=== PATIENT | male | born 1970 | race Caucasian/White ===

== ENCOUNTER 2021-05-01 15:59 | Emergency (ER) | payer OTHER, SELFPAY ==
[2021-05-01 16:26] VITALS: BP 112/84; PULSE 70; RESP 18; TEMP 36.7; O2SAT 97
[2021-05-01 17:46] VITALS: BP 120/87; PULSE 59; RESP 16; O2SAT 99
--- NOTE | 2021-05-01 18:06 | ED.GENADULT ---
HPI - General Adult General Chief complaint: Skin/Abscess/Foreign Body Stated complaint: Insect bite to abd Time Seen by Provider: 05/01/21 17:51 History of Present Illness HPI narrative: Pain presents with concern for abscess. Patient reports he was bit by something last night baker his symptoms and then the swelling became worse and he was having more pain so he wanted to come in for evaluation. Pain is located on his right lower quadrant achy, constant, worse when he touches his swelling. Denies any fevers, cough, congestion, nausea, vomiting Related Data Allergies Allergy/AdvReac Type Severity Reaction Status Date / Time No Known Allergies Allergy Verified 05/01/21 16:28 Review of Systems Review of Systems: CONSTITUTIONAL: Denies fever, chills, or sweats. EYES: Denies visual changes, redness, or discharge. ENT: Denies rhinorrhea, congestion, sore throat, or otalgia. CARDIOVASCULAR: Denies chest pain, palpitations, or edema. RESPIRATORY: Denies cough or dyspnea. GASTROINTESTINAL: Denies abdominal pain, nausea, vomiting, or diarrhea. GENITOURINARY: Denies dysuria or hematuria. SKIN: Denies rash or itching. MUSCULOSKELETAL: Denies back pain, joint pain, or myalgia. NEUROLOGIC: Denies headache, numbness, dizziness, or weakness. PSYCHIATRIC: Denies anxiety or depression. All systems reviewed & are unremarkable except as noted in HPI and below Exam Narrative: GENERAL: Well-appearing, well-nourished, and in no acute distress. HEAD: Normocephalic, atraumatic. EYES: PERRLA and EOMI. ENT: Nares clear, no rhinorrhea or epistaxis. Mucous membranes moist. NECK: Supple. No JVD ABDOMEN: Soft, nontender, nondistended, normal active bowel sounds. 1 x 3 cm area of erythema with central area of superficial swelling. EXTREMITIES: Normal range of motion. No edema. SKIN: Warm, dry, no rash. NEURO: No focal deficits. Alert and oriented x3. PSYCH: Normal mood and affect. Course Vital Signs Vital signs: Vital Signs Temperature 36.7 C 05/01/21 16:26 Pulse Rate 70 05/01/21 16:26 Respiratory Rate 18 05/01/21 16:26 Blood Pressure 112/84 05/01/21 16:26 Pulse Oximetry 97 05/01/21 16:26 Temperature 36.7 C 05/01/21 16:26 Pulse Rate 59 L 05/01/21 17:46 Respiratory Rate 16 05/01/21 17:46 Blood Pressure 120/87 05/01/21 17:46 Pulse Oximetry 99 05/01/21 17:46 Procedures Abscess I/D abdomen: Date of Incision: 05/01/21 Time of Incision: 18:08 Side (if applicable): right Sedation/analgesia: none Local Anesthetic: none Technique: needle aspiration Amount of fluid expressed (mL): 1.0 Irrigation: No Packing used?: none I&D Results: Pus Medical Decision Making MDM Narrative Medical decision making narrative: H&P as above, vss, pt looks clinically well, exam small area of erythema, l labs/img considered, symptomatic relief available as needed, on reevaluation pt continues to looks clinically well. Suspect superficial abscess needle aspiration was performed with purulent material there continue to be some erythema concerning for cellulitis, dns sepsis, NSTI. plan to tx/monitor as op w/ pcm f/u findings/plan discussed with pt, pt agree/comfortable with plan, return precautions given Vital Signs Vital Signs: Vital Signs Temperature 36.7 C 05/01/21 16:26 Pulse Rate 70 05/01/21 16:26 Respiratory Rate 18 05/01/21 16:26 Blood Pressure 112/84 05/01/21 16:26 Pulse Oximetry 97 05/01/21 16:26 Temperature 36.7 C 05/01/21 16:26 Pulse Rate 59 L 05/01/21 17:46 Respiratory Rate 16 05/01/21 17:46 Blood Pressure 120/87 05/01/21 17:46 Pulse Oximetry 99 05/01/21 17:46 Discharge Plan Discharge Clinical Impression: Cellulitis, Abscess of skin or subcutaneous tissue Patient Disposition: Home, Self-Care Condition: Improved Instructions: Antibiotic Form, Cellulitis (ED), Abscess (ED) Additional Instructions: Ple
== END 2021-05-01 18:21 | disposition home or self-care (01) ==
PROVIDERS: Emergency Provider Emergency Medicine
DX: L03.311 Cellulitis of abdominal wall (principal); L02.211 Cutaneous abscess of abdominal wall
CPT/HCPCS: 10060; 99283

== ENCOUNTER 2023-07-18 13:28 | Emergency (ER) | payer OTHER, SELFPAY ==
[2023-07-18 13:30] VITALS: BP 130/81; PULSE 67; RESP 20; TEMP 36.7; O2SAT 98
--- NOTE | 2023-07-18 17:00 | ED.GENADULT ---
HPI - General Adult General Chief complaint: Wound/Laceration Stated complaint: wound to forehead Time Seen by Provider: 07/18/23 16:34 History of Present Illness HPI narrative: Pool Renee is a 52 y/o male who presents with reports of noticing a bump to the top of his right forehead 4 days ago, and since the pain swelling has increased, he expresses concern that the was bit by a spider. Related Data Allergies Allergy/AdvReac Type Severity Reaction Status Date / Time No Known Allergies Allergy Verified 07/18/23 16:27 Review of Systems Review of Systems: CONSTITUTIONAL: Denies fever, chills, or sweats. EYES: Denies visual changes, redness, or discharge. ENT: Denies rhinorrhea, congestion, sore throat, or otalgia. CARDIOVASCULAR: Denies chest pain, palpitations, or edema. RESPIRATORY: Denies cough or dyspnea. GASTROINTESTINAL: Denies abdominal pain, nausea, vomiting, or diarrhea. GENITOURINARY: Denies dysuria or hematuria. SKIN: Complains of wound to the his right forehead that started 4 days ago. MUSCULOSKELETAL: Denies back pain, joint pain, or myalgia. NEUROLOGIC: Denies headache, numbness, dizziness, or weakness. PSYCHIATRIC: Denies anxiety or depression. Exam Narrative: GENERAL: Well-appearing, well-nourished, and in no acute distress. HEAD: Normocephalic, atraumatic. EYES: PERRLA and EOMI. ENT: Nares clear, no rhinorrhea or epistaxis. Mucous membranes moist. Oropharynx without tonsillar hypertrophy exudate or other lesions. NECK: Supple. No adenopathy or masses. No carotid bruits or JVD CHEST: Clear to auscultation. No respiratory distress. No wheezes rales or rhonchi HEART: Regular rate and rhythm. No murmur heard. Normal peripheral pulses. ABDOMEN: Soft, nontender, nondistended, normal active bowel sounds. EXTREMITIES: Normal range of motion. No edema. SKIN: area of erythema to the right forhead area. NEURO: No focal deficits. Alert and oriented x3. PSYCH: Normal mood and affect. Course Vital Signs Vital signs: Vital Signs Temperature 36.7 C 07/18/23 13:30 Pulse Rate 67 07/18/23 13:30 Respiratory Rate 20 07/18/23 13:30 Blood Pressure 130/81 07/18/23 13:30 Pulse Oximetry 98 07/18/23 13:30 Oxygen Delivery Room Air 07/18/23 13:30 Temperature 36.7 C 07/18/23 13:30 Pulse Rate 67 07/18/23 13:30 Respiratory Rate 20 07/18/23 13:30 Blood Pressure 130/81 07/18/23 13:30 Pulse Oximetry 98 07/18/23 13:30 Oxygen Delivery Room Air 07/18/23 13:30 Medical Decision Making [facility] Narrative Medical decision making narrative: On exam pt is noted to have an area of erythema to his right side of his forehead that appears to be possibly coming to a head, no fluctuance appreciated on exam, erythema has increased over the past 4 days He denies systemic symptoms - no fever/chills/ nausea/vomiting/ vision changes It is not vesicular in nature to be concerned for shingles Concerned for acute skin infection to his right forehead. Plan to give a dose of IM Rocephin here and d/c home with Oral antibiotics Patient offered something for pain but declines wanting pain medication at this time. Differential Diagnosis Differential Diagnosis: spider bite/ cellulitis/ shingles / Medical Records Medical records reviewed: Yes I reviewed the external patient's medical records. Vital Signs Vital Signs: Vital Signs Temperature 36.7 C 07/18/23 13:30 Pulse Rate 67 07/18/23 13:30 Respiratory Rate 20 07/18/23 13:30 Blood Pressure 130/81 07/18/23 13:30 Pulse Oximetry 98 07/18/23 13:30 Oxygen Delivery Room Air 07/18/23 13:30 Temperature 36.7 C 07/18/23 13:30 Pulse Rate 67 07/18/23 13:30 Respiratory Rate 20 07/18/23 13:30 Blood Pressure 130/81 07/18/23 13:30 Pulse Oximetry 98 07/18/23 13:30 Oxygen Delivery Room Air 07/18/23 13:30 Vitals reviewed by me. Discharge Plan Discharge Clinical Impression: Cellulitis Qualifiers: Site of
[2023-07-18] MEDS: cefTRIAXone 1 GM VIAL IM (17:22)
== END 2023-07-18 17:23 | disposition home or self-care (01) ==
PROVIDERS: Emergency Provider Nurse Practitioner Family
DX: L03.211 Cellulitis of face (principal)
CPT/HCPCS: 96372; 99283; J0696